=== PATIENT | female | born 1990 | race Caucasian/White ===

== ENCOUNTER 2017-03-07 18:43 | Emergency (ER) | payer OTHER ==
[~2017-03-07] VITALS: Ht 157.5 cm; Wt 72.6 kg
[~2017-03-07 18:43] MED LIST: CIPROFLOXACIN500 M1 PO; IBUPROFEN 800800 MG PO; NOHOMEMEDICATIONS; PREDNISONE50 MG PO
[2017-03-07 19:00] VITALS: BP 167/116
[2017-03-07] MEDS ORDERED: PREDNISONE 20 M20 MG PO (19:23)
[2017-03-07] MEDS ORDERED: NORCO 5-325 TA1 EACH PO (19:23)
== END 2017-03-07 19:37 | disposition home or self-care (01) ==
LOC: ER 18:43
DX: M54.12 Radiculopathy, cervical region (principal); M25.511 Pain in right shoulder; M75.101 Unspecified rotator cuff tear or rupture of right shoulder, not specified as traumatic; Z90.49 Acquired absence of other specified parts of digestive tract

== ENCOUNTER 2017-04-16 17:16 | Emergency (ER) | payer OTHER ==
[~2017-04-16] VITALS: Ht 157.5 cm; Wt 77.1 kg
[~2017-04-16 17:16] MED LIST changes: +NORCO 5-325 TA1 EACH PO; +PREDNISONE 20 M20 MG PO
[2017-04-16 17:50] LABS: URINE BILIRUBIN NEGATIVE (Negative); URINE BLOOD 2+ (Negative); URINE COLOR YELLOW; URINE GLUCOSE-RANDOM* NEGATIVE (Negative); URINE KETONES NEGATIVE (Negative); URINE LEUKOCYTES-REFLEX NEGATIVE (Negative); URINE PROTEIN (DIPSTICK) NEGATIVE (Negative); URINE SPECIFIC GRAVITY 1.015 (1.003-1.035); URINE UROBILINOGEN 0.2 E.U./dl (0.2-1.0)
[2017-04-16 17:56] LABS: URINE RBC 0-2 Rare /HPF (0-2); URINE WBC-REFLEX None Seen /HPF (0-5)
[2017-04-16 17:57] LABS: CASTS None Seen /LPF (None Seen); CRYSTALS None Seen /LPF (None Seen); SQUAMOUS 4-10 Moderate /LPF (0-3)
[2017-04-16 18:01] LABS: ABSOLUTE NEUTROPHILS 10.2 thou/uL (1.4-8.2); BASOPHILS 0.8 % (0.0-2.0); EOSINOPHILS 0.7 % (0.0-3.0); HEMATOCRIT 41.1 % (37.0-47.0); HEMOGLOBIN 14.5 gm/dL (12.0-15.0); LYMPHOCYTES 22.6 % (24.0-44.0); MCH 28.7 pg (26.0-34.0); MCHC 35.3 g/dL (28.0-37.0); MCV 81.2 fL (80.0-100.0); MONOCYTES 3.8 % (1.0-8.0); PLATELET COUNT 272 thou/uL (150-400); POLYS 72.1 % (36.0-66.0); RBC 5.06 mil/uL (4.20-5.00); RDW 12.9 % (10.5-14.5); WBC 14.1 thou/uL (4.0-11.0)
[2017-04-16 18:02] LABS: MANUAL DIFF NO
[2017-04-16 18:11] LABS: CALCIUM 9.1 mg/dL (8.5-10.1); CREATININE 0.5 mg/dL (0.6-1.0); POTASSIUM 3.9 mmol/L (3.5-5.1)
[2017-04-16 18:16] LABS: ALBUMIN 4.1 g/dL (3.4-5.0); TOTAL BILIRUBIN 0.2 mg/dL (<0.1-1.0); TOTAL PROTEIN 7.4 g/dL (6.4-8.2)
[2017-04-16] MEDS ORDERED: DOXYCYCLINE 10100 MG PO (18:59)
[2017-04-16] MEDS ORDERED: MOBIC15 MG PO (19:00)
[2017-04-16 19:11] VITALS: BP 161/82
== END 2017-04-16 19:14 | disposition home or self-care (01) ==
LOC: ER 17:16
PROVIDERS: Physician Assistant
DX: J18.9 Pneumonia, unspecified organism (principal); R09.1 Pleurisy; F17.210 Nicotine dependence, cigarettes, uncomplicated; Z90.49 Acquired absence of other specified parts of digestive tract

== ENCOUNTER 2019-04-07 20:37 | Emergency (ER) | payer OTHER ==
[~2019-04-07] VITALS: Ht 157.5 cm; Wt 81.7 kg
[~2019-04-07 20:37] MED LIST changes: +DOXYCYCLINE 10100 MG PO; +MOBIC15 MG PO
[2019-04-07] MEDS ORDERED: AUGMENTIN 875-1 EACH (20:45)
[2019-04-07] MEDS ORDERED: ACCUNEB SO1.25 MG/1 INH (20:46)
[2019-04-07] MEDS ORDERED: SYMBICORT160 MCG/4. INH (20:47)
[2019-04-07 21:43] LABS: ABSOLUTE NEUTROPHILS 10.7 thou/uL (1.4-8.2); EOSINOPHILS 1.1 % (0.0-3.0); HEMATOCRIT 42.2 % (37.0-47.0); HEMOGLOBIN 14.1 gm/dL (12.0-15.0); LYMPHOCYTES 25.3 % (24.0-44.0); MCH 27.7 pg (26.0-34.0); MCHC 33.4 g/dL (28.0-37.0); MCV 82.8 fL (80.0-100.0); MONOCYTES 4.2 % (1.0-8.0); PLATELET COUNT 335 thou/uL (150-400); POLYS 68.4 % (36.0-66.0); RDW 13.1 % (10.5-14.5); WBC 15.7 thou/uL (4.0-11.0)
[2019-04-07 21:48] LABS: ANION GAP 10 mmol/L (7-16); BUN 8 mg/dL (7-18); CALCIUM 9.1 mg/dL (8.5-10.1); CHLORIDE 102 mmol/L (98-107); CO2 28 mmol/L (21-32); CREATININE 0.8 mg/dL (0.6-1.0); GLUCOSE 146 mg/dL (74-106); POTASSIUM 3.4 mmol/L (3.5-5.1); SODIUM 140 mmol/L (136-145)
[2019-04-07 21:57] LABS: TROPONIN-I <0.06 ng/mL (<0.06)
[2019-04-07] MEDS ORDERED: LISINOPRIL10 MG PO (22:47)
[2019-04-07 23:15] VITALS: BP 155/112
--- NOTE | 2019-04-08 12:28 | EKG ---
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[facility] : 1990 Requested By: Jorge Farnsworth Order Number: [id number] MD: Rafa Casillas Measurements Intervals [place] Rate: 83 P: 19 HI: 123 QRS: 28 QRSD: 98 T: 70 QT: 377 QTc: 443 Interpretive Statements Sinus rhythm Normal tracing No previous ECG available for comparison Electronically Signed On 04-08-2019 12:28:17 CDT by Rafa Casillas [email or web address] ��������������������������������������������� <ELECTRONICALLY SIGNED> ���������������������������������������� By: Rafa Casillas MD, [facility] ��������������������������������������������� 04/08/19 1228 2109 Rafa Casillas MD, FACC /EPI
== END 2019-04-07 23:33 | disposition home or self-care (01) ==
LOC: ER 20:37
PROVIDERS: Emergency Medicine
DX: I16.0 Hypertensive urgency (principal); F17.210 Nicotine dependence, cigarettes, uncomplicated; Z90.49 Acquired absence of other specified parts of digestive tract